=== PATIENT | female | born 1990 | race Caucasian/White ===

== ENCOUNTER 2019-04-11 11:51 | Emergency (ER) | payer OTHER ==
[~2019-04-11] VITALS: Ht 165.1 cm; Wt 83.9 kg
[~2019-04-11 11:51] MED LIST: BIRTH CONTROL
[2019-04-11] MEDS ORDERED: SODIUM CHLORIDE 0.9% 1000ML 1,000 ML IV STA (11:57)
[2019-04-11] MEDS ORDERED: ONDANSETRON HCL INJ 2MG/ML 2ML 2 MG/ML VIAL IV NR (11:57)
[2019-04-11] MEDS ORDERED: KETOROLAC TROMETHAMINE 30 MG/ML VIAL IV NR (12:17)
[2019-04-11 12:19] LABS: BASOPHILS % 0.6 % (0.0-1.0); EOSINOPHILS # (AUTO) 0.2 (0.0-0.4); EOSINOPHILS % 3.2 % (0.0-6.0); HEMATOCRIT 41.2 % (34.2-44.1); HEMOGLOBIN 14.2 g/dL (12.0-16.0); LYMPHOCYTES # (AUTO) 2.3 (1.0-3.2); MEAN CORPUSCULAR HEMOGLOBIN 28.1 pg (28-32); MEAN CORPUSCULAR HGB CONC 34.5 g/dL (31-35); MEAN CORPUSCULAR VOLUME 81.4 fL (81-99); MONOCYTES # (AUTO) 0.5 (0.2-0.8); NEUTROPHILS # (AUTO) 3.5 (2.1-6.9); PLATELET COUNT 379 x10e3/uL (140-360); RED BLOOD COUNT 5.06 x10e6/uL (3.6-5.1); RED CELL DISTRIBUTION WIDTH 12.7 % (11.7-14.4)
[2019-04-11] MEDS ORDERED: MORPHINE SULFATE INJ 4 MG/ML INJ 1ML IV NR (12:30)
[2019-04-11 12:38] LABS: ALANINE AMINOTRANSFERASE 16 IU/L (0-55); ALBUMIN 3.7 g/dL (3.5-5.0); ALBUMIN/GLOBULIN RATIO 0.9 (0.8-2.0); ALKALINE PHOSPHATASE 77 IU/L (40-150); ANION GAP 13.8 mmol/L (8-16); BLOOD UREA NITROGEN 10 mg/dL (7-26); BUN/CREATININE RATIO 14 (6-25); CALCIUM 9.4 mg/dL (8.4-10.2); CARBON DIOXIDE 22 mmol/L (22-29); CHLORIDE 106 mmol/L (98-107); CREATININE, SERUM 0.73 mg/dL (0.57-1.11); EST GLOMERULAR FILTRATION RATE > 60 ML/MIN (60-); GLUCOSE 93 mg/dL (74-118); POTASSIUM 3.8 mmol/L (3.5-5.1); SODIUM 138 mmol/L (136-145)
[2019-04-11 13:21] LABS: BILIRUBIN,URINE NEGATIVE (NEGATIVE); CLARITY,URINE SL CLOUDY (CLEAR); COLOR,URINE YELLOW (YELLOW); KETONES,URINE NEGATIVE (NEGATIVE); LEUKOCYTE ESTERASE ,URINE NEGATIVE (NEGATIVE); NITRITE,URINE POSITIVE (NEGATIVE); PROTEIN,URINE DIPSTICK NEGATIVE (NEGATIVE); URINE UROBILINOGEN 0.2 mg/dL (0.2 - 1)
[2019-04-11 13:22] LABS: PREGNANCY TEST, URINE NEGATIVE (NEGATIVE)
[2019-04-11 13:37] LABS: BACTERIA,URINE MANY /HPF; EPITHELIAL CELLS,URINE RARE /LPF
[2019-04-11] MEDS ORDERED: CEFTRIAXONE SOD 1 GM VIAL IV ONE (14:15)
[2019-04-11] MEDS ORDERED: CEFTRIAXONE SOD 1 GM/NS 50 ML 50 ML IV ONE (14:30)
--- NOTE | 2019-04-11 14:37 | Diagnostic Imaging Report ---
EXAM: CT Abdomen and Pelvis WITHOUT contrast INDICATION: ^STONE PROTOCOL ^[id number] ^1335 ^Y COMPARISON: None. TECHNIQUE: Abdomen and pelvis were scanned utilizing a multidetector helical scanner from the lung base to the pubic symphysis without administration of IV contrast. Absence of intravenous contrast decreases sensitivity for detection of focal lesions and vascular pathology. Coronal and sagittal reformations were obtained. Routine protocol was performed. IV CONTRAST: None. ORAL CONTRAST: Water RADIATION DOSE: Total DLP: 517.2 mGy*cm Estimated effective dose: (DLP x 0.015 x size factor) mSv COMPLICATIONS: None FINDINGS: LINES and TUBES: None. LOWER THORAX: Unremarkable HEPATOBILIARY: No focal hepatic lesions. No biliary ductal dilation. GALLBLADDER: No radio-opaque stones or sludge. No wall thickening. SPLEEN: No splenomegaly. PANCREAS: No focal masses or ductal dilatation. ADRENALS: No adrenal nodules KIDNEYS/URETERS: No hydronephrosis. No cystic or solid mass lesions. Two small (2-3 mm) nonobstructing calcified stone is seen in the upper pole of the right kidney on series 3, images 56 and 54. A 1 mm calcified stone in the upper pole of the left kidney is seen on series 3, image 54. No calcified stones in the ureters. GI TRACT: No abnormal distention, wall thickening, or evidence of bowel obstruction. The appendix is normal in caliber but filled with linear hyperdense material. No surrounding fat stranding or fluid collections to suggest acute inflammation. PELVIC ORGANS/BLADDER: Unremarkable. Specifically, no calcified stones in the urinary bladder. LYMPH NODES: No lymphadenopathy. VESSELS: Unremarkable. PERITONEUM / RETROPERITONEUM: No free air or fluid. BONES: Unremarkable. SOFT TISSUES: Unremarkable. IMPRESSION: Nonobstructing bilateral nephrolithiasis. Signed by: Dr. Suzette May M.D. on 04/11/2019 2:33 PM
[2019-04-11 14:56] VITALS: BP 107/72
== END 2019-04-11 15:00 | disposition home or self-care (01) ==
LOC: ER 11:52
DX: R10.9 Unspecified abdominal pain (principal); M54.5 Low back pain; N39.0 Urinary tract infection, site not specified
CPT/HCPCS: 36415; 74176; 80053; 81001; 81025; 85025; 99284; J0696; J1885; J2270; J2405; J7030

== ENCOUNTER 2020-07-21 17:25 | Emergency (ER) | payer OTHER ==
[~2020-07-21] VITALS: Ht 165.1 cm; Wt 83.9 kg
--- OUTSIDE RECORDS SUMMARY | 2020-07-21 19:03 | XMS REPORT | Continuity of Care Document ---
Author Author Panono MAYLIN Reyes Organization [employer] [facility] Address Unknown Phone Unavailable Care Team Providers Care Lodge Attendant Name Role Phone [employer] [facility] Unavailable Un available Problems Problem Status Onset Date Classification Date Reported Comments Source Nicotine vapor product user Ac tive Problem [facility] Overweight Active Diagnosis 07/01/2019 [facility] Heartburn Active Diagnosis 07/01/2019 [facility] Seasonal allergies Active Problem 06/06/2020 [facility] Smoker Active Diagnosis 07/19/2019 [facility] Cough Active Diagnosis 07/01/2019 [facility] BMI 33.0-33.9,adult Active Diagnosis 07/01/2019 [facility] Elevated liver enzymes Active Problem 06/06/2020 [facility] Acne vulgaris Active Diagnosis 07/19/2019 [facility] Dizziness Active Diagnosis 07/19/2019 [facility] Allergic rhinitis Active Problem 02/20/2016 [facility] Anemia Active Problem 02/20/2016 [facility] Tobacco abuse Active Problem 02/20/2016 [facility] Obesity Active Problem 02/20/2016 [facility] Elevated LFTs Active Diagnosis 07/18/2015 [facility] Palpitations Active Diagnosis 07/18/2015 [facility] Elevated bilirubin Active Diagnosis 07/18/2015 [facility] Routine general medical examination at a health care facility Active Diag nosis 07/18/2015 [facility] Obesity Active Problem 06/26/2016 [facility] Epigastric pain Active Diagnosis 02/14/2016 [facility] BMI 32.0-32.9,adult Active Diagnosis 02/14/2016 [facility] Abdominal pain Active Diagnosis 02/20/2016 [facility] Low back pain Active Diagnosis 04/17/2016 [facility] Tobacco use disorder Active Problem 06/26/2016 [facility] Urinary tract infection Active Diagnosis 04/17/2016 [facility] Allergic rhinitis Active Problem 06/26/2016 [facility] Anemia Active Problem 06/26/2016 [facility] Shortness of breath Active Diagnosis 06/26/2016 [facility] Methamphetamine use Active Diagnosis 06/26/2016 [facility] Palpitations Active Diagnosis 06/26/2016 [facility] History of kidney stones Active Diagnosis 02/19/2020 [facility] BMI 34.0-34.9,adult Active Problem 06/06/2020 [facility] Obesity (BMI 30.0-34.9) Active Problem 06/06/2020 [facility] UTI symptoms Active Diagnosis 02/19/2020 [facility] Lower back pain Active Diagnosis 02/19/2020 [facility] Medications Medication Details Route Status Patient Instructions Ordering Provider Order Date Source Tramadol HCl 1 tablet as needed Orally Active 50 MG Orally twice a day (bid) [place] 02/15/2020 [facility] Cipro 1 tablet Orally Active 250 MG Orally every 12 hrs [place] 02/15/2020 [facility] Minocycline HCl ER as directed Orally Active 135 MG Orally [place] 07/06/2019 [facility] Zithromax Z-Suman 2 tablets on the first day, then 1 tablet daily for 4 days Orally Active 250 MG Orally Once a day [place] 06/26/2019 [facility] Omeprazole 1 capsule Orally Active 40 mg Orally Once a day [place] 06/26/2019 [facility] ProAir HFA 2 puffs as needed Inhalation Active 108 (90 Base) MCG/ACT Inhalation every 6 hrs [place] 06/26/2019 [facility] Phenergan 1/2 to 1 tablet as n eeded Orally Active 25 MG Orally every 6 hrs [place] 06/19/2016 [facility] Ranitidine HCl 1 tablet Orally Active 300 MG Orally Once a da y [place] 06/19/2016 [facility] Bactrim DS 1 tablet Orally Active 800-160 MG Orally twice a day [place] 04/15/2016 [facility] Cipro 1 tablet Orally Active 500 mg Orally Twice a d ay [place] 02/09/2016 [facility] Omeprazole 1 capsule Orally Active 20 mg Orally Once a day [place] 02/09/2016 [facility] Vicodin 1 tablet as needed Orally Active 5-300 MG Orally every 6 hrs [place] 08/16/2015 [facility] Meclizine HCl 1 tablet as need ed Orally Active 25 MG Orally once to twice daily as needed for dizziness [place] 07/03/2015 [facility] Flonase 1 spray in each nostril Nasally Active 50 MCG/ACT Nasally as needed (prn) [place] 02/20/2015 [facility] ProAir HFA 2 puffs as needed Inhalation Active 108 (90 Base) MCG/ACT Inhalation every 4 hrs [place] 02/20/2015 [facility] Levora 0.15/30 (28) 1 tablet Orally Active 30-0.15 MCG-MG Orally Once a day [facility] Microgestin FE 12/13 (Prior Aut h: Rx Ref#:[id number]) Oral Active 1-20 MG-MCG Oral [facility] Adapalene (Prior Auth: Rx Ref# :[id number]) External Active 0.3 % External [facility] Levora 0.15/30 (28) 1 tablet Orally Active 30-0.15 MCG-MG Orally [facility] ProAir HFA 2 puffs as needed Inhalation Active 108 (90 Base) MCG/ACT Inhalation every 6 hrs [facility] Allergies, Adverse Reactions, Alerts Substance Category Reaction Severity Reaction type Status Date Reported Comments Source N.K.D.A. Adverse Reaction Info Not Available Adverse Reaction 02/15/2020 [facility] Immunizations No Data Provided for This Section Results No Data Provided for This Section Pathology Reports No Data Provided for This Section Diagnostic Reports No Data Provided for This Section Consultation Notes No Data Provided for This Section Discharge Summaries No Data Provided for This Section History and Physicals No Data Provided for This Section Vital Signs Vital Sign Value Date Comments Source Weight 202 02/15/2020 [facility] Height 64 0 02/15/2020 [facility] Temperature Oral (F) 98.3 F 02/15/2020 [facility] Heart Rate 83 02/15/2020 [facility] Diastolic (mm Hg) 74 02/15/2020 [facility] Systolic (mm Hg) 108 02/15/2020 [facility] Weight 198 07/06/2019 [facility] Height 64 0 07/06/2019 [facility] Heart Rate 82 07/06/2019 [facility] Diastolic (mm Hg) 70 07/06/2019 [facility] Systolic (mm Hg) 118 07/06/2019 [facility] Weight 197 06/26/2019 [facility] Height 64 0 06/26/2019 [facility] Heart Rate 66 06/26/2019 [facility] Diastolic (mm Hg) 70 06/26/2019 [facility] Systolic (mm Hg) 122 06/26/2019 [facility] Weight 188 06/24/2016 [facility] Height 64 0 06/24/2016 [facility] Heart Rate 95 06/24/2016 [facility] Diastolic (mm Hg) 78 06/24/2016 [facility] Systolic (mm Hg) 118 06/24/2016 [facility] Weight 194 04/15/2016 [facility] Height 64 0 04/15/2016 [facility] Temperature Oral (F) 98.2 F 04/15/2016 [facility] Heart Rate 80 04/15/2016 [facility] Diastolic (mm Hg) 70 04/15/2016 [facility] Systolic (mm Hg) 120 04/15/2016 [facility] Weight 195 02/15/2016 [facility] Height 64 0 02/15/2016 [facility] Heart Rate 95 02/15/2016 [facility] Diastolic (mm Hg) 76 02/15/2016 [facility] Systolic (mm Hg) 122 02/15/2016 [facility] Weight 190 02/09/2016 [facility] Height 64 0 02/09/2016 [facility] Heart Rate 98 02/09/2016 [facility] Diastolic (mm Hg) 72 02/09/2016 [facility] Systolic (mm Hg) 120 02/09/2016 [facility] Weight 193 07/17/2015 [facility] Height 64 0 07/17/2015 [facility] Heart Rate 79 07/17/2015 [facility] Diastolic (mm Hg) 64 07/17/2015 [facility] Systolic (mm Hg) 120 07/17/2015 [facility] Encounters Location Location Details Encounter Type Encounter Number Reason For Visit Attending Provider ADM Date DC Date Status Source [facility]/ health assessment form for work [id number] 07/17/2015 07/17/2015 [facility] physical/ health assessment form for work [id number] 07/17/2015 07/17/2015 [facility] physical/ health assessment form for work [id number] 07/17/2015 07/17/2015 [facility] physical/ health assessment form for work [id number] 07/17/2015 07/17/2015 [facility] physical/ health assessment form for work [id number] 07/17/2015 07/17/2015 [facility] physical/ health assessment form for work [id number] 07/17/2015 07/17/2015 [facility] physical/ health assessment form for work [id number] 07/17/2015 07/17/2015 [facility] physical/ health assessment form for work [id number] 07/17/2015 07/17/2015 [facility] Cancel Appointment Request [id number] 07/19/2015 07/19/2015 [facility] Cancel Appointment Request [id number] 07/19/2015 07/19/2015 [facility] Cancel Appointment Request [id number] 07/19/2015 07/19/2015 [facility] Cancel Appointment Request [id number] 07/19/2015 07/19/2015 [facility] Cancel Appointment Request [id number] 07/19/2015 07/19/2015 [facility] Cancel Appointment Request [id number] 07/19/2015 07/19/2015 [facility] Cancel Appointment Request [id number] 07/19/2015 07/19/2015 [facility] Cancel Appointment Request [id number] 07/19/2015 07/19/2015 [facility] VOMITING/STOMACH PAIN [id number] 08/16/2015 08/16/2015 [facility] VOMITING/STOMACH PAIN [id number] 08/16/2015 08/16/2015 [facility] VOMITING/STOMACH PAIN [id number] 08/16/2015 08/16/2015 [facility] VOMITING/STOMACH PAIN [id number] 08/16/2015 08/16/2015 [facility] VOMITING/STOMACH PAIN [id number] 08/16/2015 08/16/2015 [facility] VOMITING/STOMACH PAIN [id number] 08/16/2015 08/16/2015 [facility] VOMITING/STOMACH PAIN [id number] 08/16/2015 08/16/2015 [facility] Returned call [id number] 08/16/2015 08/16/2015 [facility] Returned call [id number] 08/16/2015 08/16/2015 [facility] Returned call [id number] 08/16/2015 08/16/2015 [facility] Returned call [id number] 08/16/2015 08/16/2015 [facility] Returned call [id number] 08/16/2015 08/16/2015 [facility] Returned call [id number] 08/16/2015 08/16/2015 [facility] Returned call [id number] 08/16/2015 08/16/2015 [facility] Test results [id number] 09/19/2015 09/19/2015 [facility] Test results [id number] 09/19/2015 09/19/2015 [facility] Test results [id number] 09/19/2015 09/19/2015 [facility] Test results [id number] 09/19/2015 09/19/2015 [facility] Test results [id number] 09/19/2015 09/19/2015 [facility] Test results [id number] 09/19/2015 09/19/2015 [facility] Test results [id number] 09/19/2015 09/19/2015 [facility] Needs call back from Medical Staff [id number] 01/02/2016 01/02/2016 [facility] Needs call back from Medical Staff [id number] 01/02/2016 01/02/2016 [facility] Needs call back from Medical Staff [id number] 01/02/2016 01/02/2016 [facility] Needs call back from Medical Staff [id number] 01/02/2016 01/02/2016 [facility] Needs call back from Medical Staff [id number] 01/02/2016 01/02/2016 [facility] stomach pain [id number] 02/09/2016 02/09/2016 [facility] stomach pain [id number] 02/09/2016 02/09/2016 [facility] stomach pain [id number] 02/09/2016 02/09/2016 [facility] stomach pain [id number] 02/09/2016 02/09/2016 [facility] Stomach pains [id number] 02/15/2016 02/15/2016 [facility] Stomach pains [id number] 02/15/2016 02/15/2016 [facility] Stomach pains [id number] 02/15/2016 02/15/2016 [facility] sharp pain on right side of back [id number] 04/15/2016 04/15/2016 [facility] sharp pain on right side of back [id number] 04/15/2016 04/15/2016 [facility] sob, heart palpitations last few days [id number] 06/24/2016 06/24/2016 [facility] Procedures No Data Provided for This Section Assessment and Plan No Data Provided for This Section Plan of Care No Data Provided for This Section Social History Social History Date Source Social History ElementQualifiersDate Rep orted Occupation: employed. [employer] department Jun 24, 2016 children . 1 Jun 24, 2016 Ethnicity . Status , Is welsh your kelvin dorene language? Yes Jun 24, 2016 Tobacco Use: . Are you a: current smoker, How many p acks per day? 1-2 CIG A MONTH, How many years have you smoked? 2-5 Jun 24, 2016 Flu Vaccine: . No, Advised Jun 24, 2016 Use of recreational / street drugs? . Answer: Yes, What drugs do you use? C ocaine, Frequency: once Jun 24, 2016 Do you have pets? . Status: Yes, Type: dog(s) Jun 24, 2016 Where or with whom do you live ? . alone Jun 24, 2016 Marital Status: . Single Jun 24, 2016 Caffeine intake? . Status: No Jun 24, 2016 Do you exercise? . Answer: No Jun 24, 2016 Depression Screening: . negative Jun 24, 2016 Do you drink alcohol? . Status: Yes, Type: Wine, Liquor, How often? Socially Jun 24, 2016 06/24/2016 [facility] Family History Value Date S ource QualifierDescriptionCommentDate Reported Maternal Grandmother Comment not available Jun 24, 2016 Paternal Grandmother Comment not available Jun 24, 2016 Siblings Comment not available Jun 24, 2016 Maternal Grandfather Comment not available Jun 24, 2016 Children alive healthy Jun 24, 2016 Father alive asthma Jun 24, 2016 Paternal Grandfather Comment not available Jun 24, 2016 Mother alive Comment not available Jun 24, 2016 Other: Comment not available Jun 24, 2016 06/26/2016 [facility] QualifierDescriptionCommentDate Reported Maternal Grandmother Comment not available April 15, 2016 Paternal Grandmother Comment not available April 15, 2016 Siblings Comment not available April 15, 2016 Maternal Grandfather Comment not available April 15, 2016 Children alive healthy April 15, 2016 Father alive asthma April 15, 2016 Paternal Grandfather Comment not available April 15, 2016 Mother alive Comment not available April 15, 2016 Other: Comment not available April 15, 2016 04/17/2016 [facility] QualifierDescriptionCommentDate Reported Maternal Grandmother Comment not available February 15, 2016 Paternal Grandmother Comment not available February 15, 2016 Siblings Comment not available February 15, 2016 Maternal Grandfather Comment not available February 15, 2016 Children alive healthy February 15, 2016 Father alive asthma February 15, 2016 Paternal Grandfather Comment not available February 15, 2016 Mother alive Comment not available February 15, 2016 Other: Comment not available February 15, 2016 02/20/2016 [facility] QualifierDescriptionCommentDate Reported Maternal Grandmother Comment not available February 09, 2016 Paternal Grandmother Comment not available February 09, 2016 Siblings Comment not available February 09, 2016 Maternal Grandfather Comment not available February 09, 2016 Children alive healthy February 09, 2016 Father alive asthma February 09, 2016 Paternal Grandfather Comment not available February 09, 2016 Mother alive Comment not available February 09, 2016 Other: Comment not available February 09, 2016 02/14/2016 [facility] Advance Directives No Data Provided for This Section Functional Status No Data Provided for This Section
--- OUTSIDE RECORDS SUMMARY | 2020-07-21 19:04 | XMS REPORT | Continuity of Care Document ---
Author Author [facility] Organization [facility] Address [address] [place] [address] Phone Unavailable Care Team Providers Care Hot Wound [place] Production Supervisor Name Role Phone YAN SAUCEDO DO PCP Beth MCCOLLUM Attphybeth Unavailable Payers Payer Name Policy Type Policy Number Effective Date Expiration Date Beth ross [facility] [id number] 2011 00:00:00 [facility] [employer] Pos [id number] [facility] Problems Condition Name Condition Details Condition Category Status Onset Date Resolution Date Last Treatment Date Treating Clinician Comments Source Nicotine vapor product user Ni cotine vapor product user Active Problem 07/19/2019 [facility] Problem Active 2019-07-19 02:02:05 Ilene Piper Overweight Over weight Active Diagnosis 07/01/2019 [facility] Diagnosis Active 2019-07-01 02:01:28 Annabelle Piper Heartburn Hear tburn Active Diagnosis 07/01/2019 [facility] Diagnosis Active 2019-07-01 02:01:28 Annabelle Piper Seasonal allergies Seas onal allergies Active Problem 06/06/2020 [facility] Problem Active 2020-06-06 02:02:23 Annabelle Piper Smoker Smok er Active Diagnosis 07/19/2019 [facility] Diagnosis Active 2019-07-19 02:02:05 Annabelle Piper Cough Coug h Active Diagnosis 07/01/2019 [facility] Diagnosis Active 2019-07-01 02:01:28 Annabelle Munozann BMI 33.0-33.9,adult BMI 33.0-33.9,adult Active Diagnosis 07/01/2019 [facility] Diagnosis Active 2019-07-01 02:01:28 Annabelle Piper Elevated liver enzymes Elev ated liver enzymes Active Problem 06/06/2020 [facility] Problem Active 2020-06-06 02:02:23 Annabelle Piper Acne vulgaris Acne vulgaris Active Diagnosis 07/19/2019 [facility] Diagnosis Active 2019-07-19 02:02:05 Annabelle Munozann Dizziness Dizz iness Active Diagnosis 07/19/2019 [facility] Diagnosis Active 2019-07-19 02:02:05 Annabelle Munozann Allergic rhinitis Deo rgic rhinitis Active Problem 02/20/2016 [facility] Problem Active 2016-02-20 02:13:26 Annabelle [facility] Anemia Anem ia Active Problem 02/20/2016 [facility] Problem Active 2016-02-20 02:13:26 [facility] Tobacco abuse Toba mortgage accounting clerk abuse Active Problem 02/20/2016 [facility] Problem Active 2 02:13:26 Annabelle Munozann Obesity Obes ity Active Problem 02/20/2016 [facility] Problem Active 2016-02-20 02:13:26 Annabelle Munozann Elevated LFTs Elev ated LFTs Active Diagnosis 07/18/2015 [facility] Diagnosis Active 2015-07-18 02:21:23 Annabelle Piper Palpitations Palp itations Active Diagnosis 07/18/2015 [facility] Diagnosis Active 2015-07-18 02:21:23 Annabelle Munozann Elevated bilirubin Elev ated bilirubin Active Diagnosis 07/18/2015 [facility] Diagnosis Active 2015-07-18 02:21:23 Annabelle Piper Routine general medical examination at a health care acility Routine general medical examination at a health care facility Active Diagnosis 07/18/2015 [facility] Diagnosis Active 2015-07-18 02:21:23 Annabelle [facility] Obesity Obes ity Active Problem 06/26/2016 [facility] Problem Active 2016-06-26 02:24:38 Annabelle Piper Epigastric pain Epig astric pain Active Diagnosis 02/14/2016 [facility] Diagnosis Active 2016-02-14 02:26:44 Annabelle Piper BMI 32.0-32.9,adult BMI 32.0-32.9,adult Active Diagnosis 02/14/2016 [facility] Diagnosis Active 2016-02-14 02:26:44 Annabelle Piper Abdominal pain Abdo jessie pain Active Diagnosis 02/20/2016 [facility] Diagnosis Active 2016-02-20 02:13:26 Annabelle Piper Low back pain Low back pain Active Diagnosis 04/17/2016 [facility] Diagnosis Active 2016-04-17 02:10:31 Annabelle Munozann Tobacco use disorder Toba mortgage accounting clerk use disorder Active Problem 06/26/2016 [facility] Problem Active 2016-06-26 02:24:38 Annabelle Munozann Urinary tract infection Urin desiree tract infection Active Diagnosis 04/17/2016 [facility] Diagnosis Active 2016-04-17 02:10:31 Annabelle [facility] Allergic rhinitis Deo rgic rhinitis Active Problem 06/26/2016 [facility] Problem Active 2016-06-26 02:24:38 Annabelle Munozann Anemia Anem ia Active Problem 06/26/2016 [facility] Problem Active 2016-06-26 02:24:38 Annabelle Piper Shortness of breath Shor tness of breath Active Diagnosis 06/26/2016 [facility] Diagnosis Active 2016-06-26 02:24:38 Annabelle Munozann Methamphetamine use Meth amphetamine use Active Diagnosis 06/26/2016 [facility] Diagnosis Active 2016-06-26 02:24:38 Annabelle Piper Palpitations Palp itations Active Diagnosis 06/26/2016 [facility] Diagnosis Active 2016-06-26 02:24:38 Annabelle Munozann History of kidney stones Hist ory of kidney stones Active Diagnosis 02/19/2020 [facility] Diagnosis Active 2020-02-19 02:01:16 [facility] BMI 34.0-34.9,adult BMI 34.0-34.9,adult Active Problem 06/06/2020 [facility] Problem Active 2020-06-06 02:02:23 Annabelle Piper Obesity (BMI 30.0-34.9) Obes ity (BMI 30.0-34.9) Active Problem 06/06/2020 [facility] Problem Active 2020-06-06 02:02:23 Annabelle Piper UTI symptoms UTI symptoms Active Diagnosis 02/19/2020 [facility] Diagnosis Active 2020-02-19 02:01:16 Annabelle Piper Lower back pain Lowe r back pain Active Diagnosis 02/19/2020 [facility] Diagnosis Active 2020-02-19 02:01:16 [facility] Allergies, Adverse Reactions, Alerts Allergy Name Allergy Type Status Severity Reaction(s) Onset Date Inacti ve Date Treating Clinician Comments Source CadenA. NSreeA. Active Info Not Available 2020-02-15 00:00:00 [facility] [place] epinephrine DA Active U 2015-08-05 00:00:00 [facility] Family History Family Member Diagnosis Comments Start Date Stop Date Source Unknown Family Member Family History 2016-02-14 02:26:44 2 02:26:44 Annabelle Piper Social History Social Habit Start Date Stop Date Quantity Comments Source Occupation: 2016-06-24 00:00:00 2016-06-24 00:00:00 [facility] Medications Ordered Medication Name Filled Medication Name Start Date Stop Da te Current Medication? Ordering Clinician Indication Dosage Frequency Signature (SIG) Comments Components Source Microgestin FE 12/132020-02-19 02:01:16 Yes Aaron spears (Prior Auth: Rx Ref#:[id number]) [facility] Adapalene 2020-02-19 02:01:16 Yes Aaron Turcios (Prior Auth: Rx Ref#:[id number]) [facility] ProAir HFA 2020-02-19 02:01:16 Yes Aaron Turcios 2 puffs as needed [facility] Tramadol HCl 2020-02-15 00:00:00 Yes Aaron Turcios 1 tablet as needed [facility] Cipro 2020-02-15 00:00:00 Yes Aaron Turcios 1 tab let [facility] Levora 0. () 2019-07-19 02:02:05 Yes Aaron Turcios 1 tablet [facility] Minocycline HCl ER 2019-07-06 00:00:00 Yes Aaron Turcios as directed [facility] Zithromax Z-Suman 2019-06-26 00:00:00 Yes Aaron Turcios 2 tablets on the first day, then 1 tablet daily for 4 days [facility] Omeprazole 2019-06-26 00:00:00 Yes Aaron Turcios 1 capsule [facility] ProAir HFA 2019-06-26 00:00:00 Yes Aaron Turcios 2 puffs as needed [facility] Levora 0.30 (28) 2016-06-26 02:24:38 Yes Lakia Sergio 1 tablet [facility] [place] Phenergan 2016-06-19 00:00:00 Yes Lakia Sergio 1/2 to 1 tablet as needed [facility] [place] Ranitidine HCl 2016-06-19 00:00:00 Yes Lakia Stanford 1 tablet [facility] [place] Bactrim DS 2016-04-15 00:00:00 Yes Ivone Lennox 1 tablet [facility] Cipro 2016-02-09 00:00:00 Yes Lakia Sergio 1 table t [facility] Omeprazole 2016-02-09 00:00:00 Yes Ivone Lennox 1 capsule [facility] [place] Vicodin 2015-08-16 00:00:00 Yes Lakia Stanford 1 tab let as needed [facility] Meclizine HCl 2015-07-03 00:00:00 Yes Lakia Sergio 1 tablet as needed [facility] Flonase 2015-02-20 00:00:00 Yes Lakia Sergio 1 spray in each nostril [facility] [place] ProAir HFA 2015-02-20 00:00:00 Yes Larisa Curry 2 puffs as needed [facility] Control Control Yes [facility] Vital Signs Vital Name Observation Time Observation Value Comments Source Weight 2020-02-15 13:15:00 [facility] [place] Height 2020-02-15 13:15:00 [facility] Temperature Oral (F) 2020-02-15 13:15:00 98.3 F [facility] Heart Rate 2020-02-15 13:15:00 [facility] Diastolic (mm Hg) 2020-02-15 13:15:00 [facility] [place] Systolic (mm Hg) 2020-02-15 13:15:00 [facility] Weight 2019-07-06 21:15:00 [facility] Height 2019-07-06 21:15:00 [facility] Heart Rate 2019-07-06 21:15:00 [facility] [place] Diastolic (mm Hg) 2019-07-06 21:15:00 [facility] [place] Systolic (mm Hg) 2019-07-06 21:15:00 [facility] [place] Weight 2019-06-26 18:30:00 [facility] Height 2019-06-26 18:30:00 [facility] Heart Rate 2019-06-26 18:30:00 [facility] Diastolic (mm Hg) 2019-06-26 18:30:00 [facility] Systolic (mm Hg) 2019-06-26 18:30:00 [facility] [place] Weight 2016-06-24 19:15:00 [facility] [place] Height 2016-06-24 19:15:00 [facility] [place] Heart Rate 2016-06-24 19:15:00 [facility] Diastolic (mm Hg) 2016-06-24 19:15:00 [facility] Systolic (mm Hg) 2016-06-24 19:15:00 [facility] [place] Weight 2016-04-15 19:45:00 [facility] [place] Height 2016-04-15 19:45:00 [facility] [place] Temperature Oral (F) 2016-04-15 19:45:00 98.2 F [facility] [place] Heart Rate 2016-04-15 19:45:00 [facility] [place] Diastolic (mm Hg) 2016-04-15 19:45:00 [facility] [place] Systolic (mm Hg) 2016-04-15 19:45:00 [facility] Weight 2016-02-15 19:45:00 [facility] [place] Height 2016-02-15 19:45:00 [facility] [place] Heart Rate 2016-02-15 19:45:00 [facility] [place] Diastolic (mm Hg) 2016-02-15 19:45:00 [facility] Systolic (mm Hg) 2016-02-15 19:45:00 Miguel rial [place] Weight 2016-02-09 16:15:00 [facility] Height 2016-02-09 16:15:00 [facility] [place] Heart Rate 2016-02-09 16:15:00 [facility] Diastolic (mm Hg) 2016-02-09 16:15:00 [facility] [place] Systolic (mm Hg) 2016-02-09 16:15:00 Miguel rial [place] Weight 2015-07-17 14:00:00 [facility] Height 2015-07-17 14:00:00 [facility] [place] Heart Rate 2015-07-17 14:00:00 [facility] [place] Diastolic (mm Hg) 2015-07-17 14:00:00 Mem orisamantha [place] Systolic (mm Hg) 2015-07-17 14:00:00 Miguel riamanny [place] Procedures Procedure Date / Time Performed Performing Clinician Sourazam e CT of abdomen and pelvis without contrast 2019-04-11 00:00:00 KIZZY CHARLES [facility] Encounters Start Date/Time End Date/Time Encounter Type Admission Type [facility] Care Department Encounter ID Source 2020-06-03 06:15:00 2020-06-03 06:15:00 Outpatient [facility] [id number] [employer]Works 2020-02-15 08:15:00 2020-02-15 08:15:00 Outpatient [facility] [id number] [employer] 2019-07-06 16:15:00 2019-07-06 16:15:00 Outpatient [facility] [id number] [employer]ClinicalWorks 2019-06-26 13:30:00 2019-06-26 13:30:00 Outpatient [facility] [id number] [employer] 2019-04-11 11:52:00 2019-04-11 15:00:00 Departed Emergency Room 1 ENE MCCOLLUM [facility] [id number] [facility] 2016-06-24 14:15:00 2016-06-24 14:15:00 Outpatient [facility] [id number] eClinicalWorks 2016-04-15 14:45:00 2016-04-15 14:45:00 Outpatient [facility] [id number] [employer]Works 2016-02-15 14:45:00 2016-02-15 14:45:00 Outpatient [facility] [id number] e[facility]Works 2016-02-09 11:15:00 2016-02-09 11:15:00 Outpatient [facility] [id number] [employer]Works 2016-01-02 13:20:00 2016-01-02 13:20:00 [facility] [id number] [facility] 2015-09-19 11:49:00 2015-09-19 11:49:00 Out[facility] [id number] [facility] 2015-08-16 15:48:00 2015-08-16 15:48:00 Outpatient [facility] [id number] [facility] 2015-07-17 09:00:00 2015-07-17 09:00:00 Outpatient [facility] [id number] [facility] Results Test Description Test Time Test Comments Results Result Comments Source URINALYSIS COMPLETE 2019-08-29 01:36:00 Test Item UA COLOR (test code = COLU) YELLOW YELLOW UA APPEARANCE (test code = APPU) CLEAR CLEAR UA GLUCOSE DIPSTICK (test code = DGLUU) NEGATIVE mg/dL NEGATIVE UA BILIRUBIN DIPSTICK (test code = BILU) NEGATIVE mg/dL NEGATIVE UA KETONE DIPSTICK (test code = KETU) >150 (4+) mg/dL NEGATIVE A UA SPECIFIC GRAVITY (test code = SGU) 1.035 1.001-1.035 UA BLOOD DIPSTICK (test code = QUANG) Negative mg/dL NEGATIVE UA PH DIPSTICK (test code = ISAAC) 6.0 5.0-8.0 UA PROTEIN DIPSTICK (test code = PROU) 50 (1+) mg/dL NEGATIVE A UA UROBILINIOGEN DIPSTICK (test code = URO) Normal mg/dL NEGATIVE UA NITRITE DIPSTICK (test code = RUFINO) NEGATIVE NEGATIVE UA LEUKOCYTE ESTERASE W REFLEX (test code = LEUUR) 75 Giovana/uL (1+) Giovana/uL NEGATIVE A UA WBC (test code = WBCU) 0-5 per HPF 0-5 UA RBC (test code = RBCU) 0-2 #/HPF 0-5 UA EPITHELIAL CELLS (test code = EPIU) MOD per HPF FEW UA BACTERIA (test code = BACU) FEW #/HPF NONE A UA MUCUS (test code = MUCU) MANY #/LPF FEW A Urine Source? Clean CatchDRUGS OF ABUSE SCREEN [id number] 01:36:00* Test Item Value Reference Range Interpretation Comments URN COCAINE (test code = COCAURN) NEGATIVE <300 ng/mL URN CANNABINOIDS (test code = CANNABURN) NEGATIVE <50 ng/mL URN AMPHETAMINE (test code = AMPHETURN) POSITIVE <1000 ng/mL A This test provides only a preliminary test result. A morespecific alternate chemical method must be used in order toobtain a confirmed analytical result. Gas chromatography/mass spectrometry (GC/MS) is thepreferred confirmatory method. Other chemical confirmationmethods are available. Clinical consideration and professional judgment should be applied to any drug of abusetest result, particularly when preliminary positive resultsare used.Unconfirmed screening results must not be used fornon-medical purposes (e.g., employment testing, legaltesting). URN BARBITURATE (test code = BARBITURN) NEGATIVE <200 ng/mL URN BENZODIAZEPINE (test code = BENZOURN) NEGATIVE <200 ng/mL URN OPIATES (test code = OPIATURN) NEGATIVE <300 ng/mL URN PHENCYCLIDINE (PCP) (test code = PHENCURN) NEGATIVE <25 ng/ mL URN METHADONE (test code = METHAURN) NEGATIVE <300 ng/mL Urine Source? Clean CatchURINALYSIS [id number] 01:23:00* Test Item Value Reference Range Interpretation Comments UA COLOR (test code = COLU) YELLOW YELLOW UA APPEARANCE (test code = APPU) CLEAR CLEAR UA GLUCOSE DIPSTICK (test code = DGLUU) NEGATIVE mg/dL NEGATIVE UA BILIRUBIN DIPSTICK (test code = BILU) NEGATIVE mg/dL NEGATIVE UA KETONE DIPSTICK (test code = KETU) >150 (4+) mg/dL NEGATIVE A UA SPECIFIC GRAVITY (test code = SGU) 1.035 1.001-1.035 UA BLOOD DIPSTICK (test code = QUANG) Negative mg/dL NEGATIVE UA PH DIPSTICK (test code = ISAAC) 6.0 5.0-8.0 UA PROTEIN DIPSTICK (test code = PROU) 50 (1+) mg/dL NEGATIVE A UA UROBILINIOGEN DIPSTICK (test code = URO) Normal mg/dL NEGATIVE UA NITRITE DIPSTICK (test code = RUFINO) NEGATIVE NEGATIVE UA LEUKOCYTE ESTERASE W REFLEX (test code = LEUUR) 75 Giovana/uL (1+) Giovana/uL NEGATIVE A UA WBC (test code = WBCU) 0-5 per HPF 0-5 UA RBC (test code = RBCU) 0-2 #/HPF 0-5 UA EPITHELIAL CELLS (test code = EPIU) MOD per HPF FEW UA BACTERIA (test code = BACU) FEW #/HPF NONE A UA MUCUS (test code = MUCU) MANY #/LPF FEW A Urine Source? Clean CatchDRUGS OF ABUSE SCREEN [id number] 01:23:00* Test Item Value Reference Range Interpretation Comments URN COCAINE (test code = COCAURN) <300 ng/mL URN CANNABINOIDS (test code = CANNABURN) <50 ng/mL URN AMPHETAMINE (test code = AMPHETURN) <1000 ng/mL URN BARBITURATE (test code = BARBITURN) <200 ng/mL URN BENZODIAZEPINE (test code = BENZOURN) <200 ng/mL URN OPIATES (test code = OPIATURN) <300 ng/mL URN PHENCYCLIDINE (PCP) (test code = PHENCURN) <25 ng/ mL URN METHADONE (test code = METHAURN) <300 ng/mL Urine Source? Clean CatchBASIC METABOLIC [id number] 01:20:00* Test Item Value Reference Range Interpretation Comments SODIUM (test code = NA) 141 mmol/L 136-145 N POTASSIUM (test code = K) 3.6 mmol/L 3.5-5.1 N CHLORIDE (test code = CL) 107.0 mmol/L 98-107 N CARBON DIOXIDE (test code = CO2) 21.0 mmol/L 21-32 N ANION GAP (test code = GAP) 16.6 10-20 N GLUCOSE (test code = GLU) 91 mg/dL 74-106 N BLOOD UREA NITROGEN (test code = BUN) 12 mg/dL 7-18 N GLOMERULAR FILTRATION RATE (test code = GFR) > 60 mL/min >=60 Estimated GFR by using Modified MDRD formula.Chronic kidney disease is defined as either kidney damageor GFR <60 mL/min/1.73 m2 for >3 months. CREATININE (test code = CREAT) 0.70 mg/dL 0.55-1.02 N Note change in reference range due to change in reagent. BUN/CREATININE RATIO (test code = BUN/CREA) 17.1 10-20 N CALCIUM (test code = CA) 8.6 mg/dL 8.5-10.1 N HEPATIC FUNCTION [id number] 01:20:00* Test Item Value Reference Range Interpretation Comments TOTAL PROTEIN (test code = PROT) 7.6 gram/dL 6.4-8.2 N ALBUMIN (test code = ALB) 3.7 g/dL 3.4-5.0 N GLOBULIN (test code = GLOB) 3.9 gram/dL 2.7-4.2 N ALBUMIN/GLOBULIN RATIO (test code = A/G) 0.9 0.75-1.50 N BILIRUBIN TOTAL (test code = BILT) 1.60 mg/dL 0.0-1.0 H BILIRUBIN DIRECT (test code = BILD) 0.31 mg/dL 0.0-0.20 H SGOT/AST (test code = AST) 42 IUnit/L 15-37 H SGPT/ALT (test code = ALT) 50 IUnit/L 12-78 N ALKALINE PHOSPHATASE TOTAL (test code = ALKP) 85 IUnit/L 45-117 N Note change in reference range due to change in reagent. CREATINE KINASE (CK)2019-08-29 01:20:00* Test Item Value Reference Range Interpretation Comments CREATINE KINASE (CK) (test code = CK) 203 IUnit/L 26-208 N [id number] 01:20:00* Test Item Value Reference Range Interpretation Comments LIPASE (test code = LIP) 61 U/L 73.0-393.0 L HCG SERUM [id number] 01:20:00* Test Item Value Reference Range Interpretation Comments HCG SERUM QUAL (test code = HCGQL) NEGATIVE NEGATIVE This HCGQL test is NOT applicable for MALE patients.Check with nurse about probable order error.If Tumor Marker Test needed, nurse should order test "HCGTU"(Test #[id number]) [id number] 01:20:00* Test Item Value Reference Range Interpretation Comments TROPONIN-I (test code = TROPI) <0.015 ng/mL 0-0.045 N [id number] 01:20:00* Test Item Value Reference Range Interpretation Comments ACETAMINOPHEN (test code = ACET) < 10 mcg/mL 10-30 L A RANGE OF 10-30 mcg/mL IS A THERAPEUTIC RANGE. TOXIC CONCENTRATIONS: >150 mcg/mL AT 4 HOURS AFTER INGESTION >= 50 mcg/mL AT 12 HOURS AFTER INGESTION [id number]:20:00* Test Item Value Reference Range Interpretation Comments SALICYLATE (test code = FLASH) < 1.7 mg/dL 2.8-20.0 L [id number] 01:20:00* Test Item Value Reference Range Interpretation Comments ALCOHOL (test code = ALC) < 3 mg/dL 0.0-3.0 N -- INTERPRETIVE DATA NOTE: POSITIVE SCREENING RESULTS SHOULD BE CONSIDERED PRESUMPTIVE.WHEN COLLECTED FOR MEDICAL PURPOSES ONLY. SPECIMEN WILL NOTBE COLLECTED BY CHAIN OF CUSTODY.IF A CONFIRMATION OF POSITIVE RESULTS IS DESIRED, ACONFIRMATION TEST MUST BE REQUESTED BY THE PHYSICIAN AT ANADDITIONAL CHARGE TO THE PATIENT. BASIC METABOLIC [id number] 01:06:00* Test Item Value Reference Range Interpretation Comments SODIUM (test code = NA) 141 mmol/L 136-145 N POTASSIUM (test code = K) 3.6 mmol/L 3.5-5.1 N CHLORIDE (test code = CL) 107.0 mmol/L 98-107 N CARBON DIOXIDE (test code = CO2) mmol/L 21-32 ANION GAP (test code = GAP) 10-20 GLUCOSE (test code = GLU) mg/dL 74-106 BLOOD UREA NITROGEN (test code = BUN) mg/dL 7-18 GLOMERULAR FILTRATION RATE (test code = GFR) mL/min >=60 CREATININE (test code = CREAT) mg/dL 0.55-1.02 BUN/CREATININE RATIO (test code = BUN/CREA) 10-20 CALCIUM (test code = CA) mg/dL 8.5-10.1 HEPATIC FUNCTION [id number] 01:06:00* Test Item Value Reference Range Interpretation Comments TOTAL PROTEIN (test code = PROT) gram/dL 6.4-8.2 ALBUMIN (test code = ALB) g/dL 3.4-5.0 GLOBULIN (test code = GLOB) gram/dL 2.7-4.2 ALBUMIN/GLOBULIN RATIO (test code = A/G) 0.75-1.50 BILIRUBIN TOTAL (test code = BILT) mg/dL 0.0-1.0 BILIRUBIN DIRECT (test code = BILD) mg/dL 0.0-0.20 SGOT/AST (test code = AST) IUnit/L 15-37 SGPT/ALT (test code = ALT) IUnit/L 12-78 ALKALINE PHOSPHATASE TOTAL (test code = ALKP) IUnit/L 45-117 CREATINE KINASE (CK)2019-08-29 01:06:00* Test Item Value Reference Range Interpretation Comments CREATINE KINASE (CK) (test code = CK) IUnit/L 26-208 [id number] 01:06:00* Test Item Value Reference Range Interpretation Comments LIPASE (test code = LIP) U/L 73.0-393.0 HCG SERUM [id number] 01:06:00* Test Item Value Reference Range Interpretation Comments HCG SERUM QUAL (test code = HCGQL) NEGATIVE [id number] 01:06:00* Test Item Value Reference Range Interpretation Comments TROPONIN-I (test code = TROPI) ng/mL 0-0.045 [id number] 01:06:00* Test Item Value Reference Range Interpretation Comments ACETAMINOPHEN (test code = ACET) mcg/mL 10-30 [id number] 01:06:00* Test Item Value Reference Range Interpretation Comments SALICYLATE (test code = FLASH) mg/dL 2.8-20.0 [id number] 01:06:00* Test Item Value Reference Range Interpretation Comments ALCOHOL (test code = ALC) mg/dL 0-3 BASIC METABOLIC [id number] 01:06:00* Test Item Value Reference Range Interpretation Comments SODIUM (test code = NA) 141 mmol/L 136-145 N POTASSIUM (test code = K) 3.6 mmol/L 3.5-5.1 N CHLORIDE (test code = CL) 107.0 mmol/L 98-107 N CARBON DIOXIDE (test code = CO2) mmol/L 21-32 ANION GAP (test code = GAP) 10-20 GLUCOSE (test code = GLU) mg/dL 74-106 BLOOD UREA NITROGEN (test code = BUN) mg/dL 7-18 GLOMERULAR FILTRATION RATE (test code = GFR) mL/min >=60 CREATININE (test code = CREAT) mg/dL 0.55-1.02 BUN/CREATININE RATIO (test code = BUN/CREA) 10-20 CALCIUM (test code = CA) mg/dL 8.5-10.1 HEPATIC FUNCTION [id number] 01:06:00* Test Item Value Reference Range Interpretation Comments TOTAL PROTEIN (test code = PROT) gram/dL 6.4-8.2 ALBUMIN (test code = ALB) g/dL 3.4-5.0 GLOBULIN (test code = GLOB) gram/dL 2.7-4.2 ALBUMIN/GLOBULIN RATIO (test code = A/G) 0.75-1.50 BILIRUBIN TOTAL (test code = BILT) mg/dL 0.0-1.0 BILIRUBIN DIRECT (test code = BILD) mg/dL 0.0-0.20 SGOT/AST (test code = AST) IUnit/L 15-37 SGPT/ALT (test code = ALT) IUnit/L 12-78 ALKALINE PHOSPHATASE TOTAL (test code = ALKP) IUnit/L 45-117 CREATINE KINASE (CK)2019-08-29 01:06:00* Test Item Value Reference Range Interpretation Comments CREATINE KINASE (CK) (test code = CK) IUnit/L 26-208 EORSCS5717-11-08 01:06:00* Test Item Value Reference Range Interpretation Comments LIPASE (test code = LIP) U/L 73.0-393.0 HCG SERUM [id number] 01:06:00* Test Item Value Reference Range Interpretation Comments HCG SERUM QUAL (test code = HCGQL) NEGATIVE NEGATIVE This HCGQL test is NOT applicable for MALE patients.Check with nurse about probable order error.If Tumor Marker Test needed, nurse should order test "HCGTU"(Test #550.60738) [id number]-[id number] 01:06:00* Test Item Value Reference Range Interpretation Comments TROPONIN-I (test code = TROPI) ng/mL 0-0.045 [id number] 01:06:00* Test Item Value Reference Range Interpretation Comments ACETAMINOPHEN (test code = ACET) mcg/mL 10-30 [id number] 01:06:00* Test Item Value Reference Range Interpretation Comments SALICYLATE (test code = FLASH) mg/dL 2.8-20.0 [id number] 01:06:00* Test Item Value Reference Range Interpretation Comments ALCOHOL (test code = ALC) mg/dL 0-3 CBC W/O [id number] 00:53:00* Test Item Value Reference Range Interpretation Comments WHITE BLOOD CELL (test code = WBC) 12.8 K/mm3 4.5-12.5 H RED BLOOD CELL (test code = RBC) 4.66 mill/mm3 3.7-5.2 N HEMOGLOBIN (test code = HGB) 12.9 gram/dL 11.5-15.5 N HEMATOCRIT (test code = HCT) 37.3 % 36.0-46.0 N MEAN CELL VOLUME (test code = MCV) 80.0 fL 80-98 N MEAN CELL HGB (test code = MCH) 27.7 picogram 27.0-33.0 N MEAN CELL HGB CONCETRATION (test code = MCHC) 34.6 gram/dL 33.0-36. 0 N RED CELL DISTRIBUTION WIDTH (test code = RDW) 12.5 % 11.6-16. 2 N PLATELET COUNT (test code = PLT) 377 K/mm3 150-450 N MEAN PLATELET VOLUME (test code = MPV) 10.5 fL 6.7-11.0 N - XR CHEST 1 [id number] 23:53:00 FAX: Dakota Macias MD [place]: B St: REG Name: MAYLIN OSUNA [facility] : [birth year] Age/S: 29/F [address] Unit #: [id number] Loc: [place] [address] Phys: Dakota Macias MD Acct: [id number] Dis Date: Status: REG ER PHONE #: [phone] Exam Date: 08/28/2019 2351 FAX #: [phone] Reason: COUGH EXAMS: CPT CODE: [id number] XR CHEST 1 V 86991 EXAM: - XR CHEST 1 V HISTORY: Cough. FINDINGS: Single AP view of the ch est is provided. Heart size and vascularity are within normal limits. The lungs are clear of focal consolidation. No effusion, pneumothorax, or acute osseous abnormality. IMPRESSION: No ra diographic evidence of acute cardiopulmonary process. at 3673 Repor binu and signed by: Conrad Gomez MD CC: Dakota Macias MD Technologist: GRACY HESS Trnscrd Date/Time/By: 08/28/2019 (4589) : By: Sheila [email or web address] Orig Print D/T: S: 08/28/2019 (0259) SARAH NÚÑEZ [address] ABDOMEN/PELVIS [id number] 14:28:00 [place] [address] Patient Name: MAYLIN CANO MR #: [id number] : 1990 Age/Sex: 28/F Req #: [id number] Adm Physician: Ordered by: KIZZY VELASQUEZ MENSWEAR SALESPERSON Report #: [id number] Location: ER Room/Bed: Procedure: [id number] CT /CT ABDOMEN/PELVIS WO Exam Date: 04/11/19 Exam Time: 1335 REPORT STATUS: Signed EXAM: CT Abdomen and Pelvis WITHOUT contrast INDICATION: STONE PROTOCOL [id number] Y COMPARISON: None. TECHNIQUE: Abdomen and pe lvis were scanned utilizing a multidetector helical scanner from the lung base to the pubic symphysis without administration of IV contrast. Absence of intr avenous contrast decreases sensitivity for detection of focal lesions and vasc ular pathology. Coronal and sagittal reformations were obtained. Routine china col was performed. IV CONTRAST: None. ORAL CONTRAST : Water RADIATION DOSE: Total DLP: 517.2 mGy*cm Est imated effective dose: (DLP x 0.015 x size factor) mSv COMPLICATIO NS: None FINDINGS: LINES and TUBES: None. LOWER THORAX: Unremark able HEPATOBILIARY: No focal hepatic lesions. No biliary ductal dilati on. GALLBLADDER: No radio-opaque stones or sludge. No wall thickening. SPLEEN: No splenomegaly. PANCREAS: No focal masses or ductal dilatation. ADRENALS: No adrenal nodules KIDNEYS/URETERS: No hydronephros is. No cystic or solid mass lesions. Two small (2-3 mm) nonobstructing calci fied stone is seen in the upper pole of the right kidney on series 3, images 5 6 and 54. A 1 mm calcified stone in the upper pole of the left kidney is seen on series 3, image 54. No calcified stones in the ureters. GI TRACT: No a bnormal distention, wall thickening, or evidence of bowel obstruction. T he appendix is normal in caliber but filled with linear hyperdense material. N o surrounding fat stranding or fluid collections to suggest acute inflammation . PELVIC ORGANS/BLADDER: Unremarkable. Specifically, no calcified stones in the urinary bladder. LYMPH NODES: No lymphadenopathy. VESSELS: Unre markable. PERITONEUM / RETROPERITONEUM: No free air or fluid. BONES: U nremarkable. SOFT TISSUES: Unremarkable. IMPRESSION: No nobstructing bilateral nephrolithiasis. Signed by: Dr. Suzette Rosales M.D. on 04/11/2019 2:33 PM Dictated By: SUZETTE SMITH MD E lectronically Signed By: SUZETTE SMITH MD on 04/11/191432 Transcribe d By: LEXUS on 04/11/19 1433 COPY TO: KIZZY VELASQUEZ [employer]WE[employer] SALESPERSON Urine [id number] 13:37:00* Test Item Value Reference Range Interpretation Comments Urine WBC (test code = 5821-4) 6-10 0-5 [facility] [id number] 13:37:00* Test Item Value Reference Range Interpretation Comments Urine RBC (test code = 58190-7) NONE 0-5 [facility] Fvsxiixv0325-45-84 13:37:00* Test Item Value Reference Range Interpretation Comments Urine Bacteria (test code = 56438-1) MANY NONE [facility] Epithelial [id number] 13:37:00 * Test Item Value Reference Range Interpretation Comments Urine Epithelial Cells (test code = 69420-4) RARE NONE [facility] Pqefd4578-55-29 13:22:00* Test Item Value Reference Range Interpretation Comments Urine Color (test code = 5778-6) YELLOW YELLOW [facility] Fopzwqa6025-71-12 13:22:00* Test Item Value Reference Range Interpretation Comments Urine Clarity (test code = 66361-8) SL CLOUDY CLEAR [facility] Specific Njkbxmn1485-93-55 13:22:00 * Test Item Value Reference Range Interpretation Comments Urine Specific [place] (test code = 5811-5) 1.020 1.010-1.02 5 [facility] [id number] 13:22:00* Test Item Value Reference Range Interpretation Comments Urine pH (test code = 71017-3) 6 5-7 [facility] Leukocyte Ekppksrg6312-05-34 13:22:00* Test Item Value Reference Range Interpretation Comments Urine Leukocyte Esterase (test code = 5799-2) NEGATIVE NEGATIVE [facility] Tnzifnf2204-93-78 13:22:00* Test Item Value Reference Range Interpretation Comments Urine Nitrite (test code = 99547-3) POSITIVE NEGATIVE H [facility] Eqgloey6356-12-68 13:22:00* Test Item Value Reference Range Interpretation Comments Urine Protein (test code = 5804-0) NEGATIVE NEGATIVE [facility] Glucose (UA)2019-04-11 13:22:00* Test Item Value Reference Range Interpretation Comments Urine Glucose (UA) (test code = 2349-9) NEGATIVE NEGATIVE [facility] Juduhio5941-48-99 13:22:00* Test Item Value Reference Range Interpretation Comments Urine Ketones (test code = 51249-3) NEGATIVE NEGATIVE [facility] Ysdgwqwxpzzn9801-58-45 13:22:00* Test Item Value Reference Range Interpretation Comments Urine Urobilinogen (test code = 96429-1) 0.2 0.2-1 [facility] Eagajmtpt1880-98-66 13:22:00* Test Item Value Reference Range Interpretation Comments Urine Bilirubin (test code = 1978-6) NEGATIVE NEGATIVE [facility] Dhjul0412-35-74 13:22:00* Test Item Value Reference Range Interpretation Comments Urine Blood (test code = 79399-4) NEGATIVE NEGATIVE [facility] Tqoc9303-68-19 13:22:00* Test Item Value Reference Range Interpretation Comments Urine Test (test code = 2106-3) NEGATIVE NEGATIVE [facility] Lmyzl2061-36-80 12:38:00* Test Item Value Reference Range Interpretation Comments Sodium Level (test code = 2951-2) 138 136-145 [facility] CenterPotassium Xanzy7264-36-98 12:38:00* Test Item Value Reference Range Interpretation Comments Potassium Level (test code = 2823-3) 3.8 3.5-5.1 [facility] CenterChloride Crsrr4451-79-03 12:38:00* Test Item Value Reference Range Interpretation Comments Chloride Level (test code = 2075-0) 106 98-107 [facility] CenterCarbon Dioxide Cuovj5351-95-02 12:38:00* Test Item Value Reference Range Interpretation Comments Carbon Dioxide Level (test code = 2028-9) 22 - [facility] CenterAnion Crl8961-47-23 12:38:00* Test Item Value Reference Range Interpretation Comments Anion Gap (test code = 40606-7) 13.8 8-16 [facility] CenterBlood Urea Twycxksa7045-06-22 12:38:00* Test Item Value Reference Range Interpretation Comments Blood Urea Nitrogen (test code = 3094-0) 10 7-26 [facility] CenterCreatinine2019-05-19 12:38:00* Test Item Value Reference Range Interpretation Comments Creatinine (test code = 2160-0) 0.73 0.57-1.11 [facility] CenterBUN/Creatinine Ncvox2079-71-78 12:38:00* Test Item Value Reference Range Interpretation Comments BUN/Creatinine Ratio (test code = 3097-3) 14 05-18 [facility] CenterEstimat Glomerular Filtration Rate 2019-04-11 12:38:00* Test Item Value Reference Range Interpretation Comments Estimat Glomerular Filtration Rate (test code = 221591604) > 60 >60 Ranges were taken from the National Kidney Disease Education Program and the [facility] [employer] [employer] literature.Reference ranges:60 or greater: Uwckmm41-53 ( for 3 consecutive months): Chronic kidney disease 15 or less: Kidney failureMethodist Charlton Medical CenterGlucose Eexrh5643-87-40 12:38:00* Test Item Value Reference Range Interpretation Comments Glucose Level (test code = BQX1703) 93 74-118 [facility] CenterCalcium Umuon4849-34-09 12:38:00* Test Item Value Reference Range Interpretation Comments Calcium Level (test code = 90476-9) 9.4 8.4-10.2 [facility] CenterTotal Wpyotjwuq6194-49-60 12:38:00* Test Item Value Reference Range Interpretation Comments Total Bilirubin (test code = 1975-2) 1.1 0.2-1.2 [facility] CenterAspartate Amino Transf (AST/SGOT) 2019-04-11 12:38:00* Test Item Value Reference Range Interpretation Comments Aspartate Amino Transf (AST/SGOT) (test code = Aspartate Amino Transf (AST/SGOT)) 18 5-34 [facility] CenterAlanine Aminotransferase (ALT/SGPT) 2019-04-11 12:38:00* Test Item Value Reference Range Interpretation Comments Alanine Aminotransferase (ALT/SGPT) (test code = 1742-6) 16 0-55 [facility] CenterTotal Tqfpynu2228-91-95 12:38:00* Test Item Value Reference Range Interpretation Comments Total Protein (test code = 2885-2) 7.9 6.5-8.1 [facility] CenterAlbumin2019-05-19 12:38:00* Test Item Value Reference Range Interpretation Comments Albumin (test code = 1751-7) 3.7 3.5-5.0 [facility] CenterGlobulin2019-05-19 12:38:00* Test Item Value Reference Range Interpretation Comments Globulin (test code = 32383-9) 4.2 2.3-3.5 H [facility] CenterAlbumin/Globulin Xmxdv2560-65-38 12:38:00 * Test Item Value Reference Range Interpretation Comments Albumin/Globulin Ratio (test code = 1759-0) 0.9 0.8-2.0 [facility] CenterAlkaline Rkhwljjkqsa9731-82-84 12:38:00* Test Item Value Reference Range Interpretation Comments Alkaline Phosphatase (test code = 6768-6) 77 40-150 [facility] CenterWhite Blood Laeeg2747-61-13 12:21:00* Test Item Value Reference Range Interpretation Comments White Blood Count (test code = 6690-2) 6.63 4.8-10.8 [facility] CenterRed Blood Rpfkw3167-88-68 12:21:00* Test Item Value Reference Range Interpretation Comments Red Blood Count (test code = 789-8) 5.06 3.6-5.1 [facility] CenterHemoglobin2019-05-19 12:21:00* Test Item Value Reference Range Interpretation Comments Hemoglobin (test code = 37054-8) 14.2 12.0-16.0 [facility] CenterHematocrit2019-05-19 12:21:00* Test Item Value Reference Range Interpretation Comments Hematocrit (test code = 4544-3) 41.2 34.2-44.1 [facility] CenterMean Corpuscular Jviwqw2392-03-25 12:21:00* Test Item Value Reference Range Interpretation Comments Mean Corpuscular Volume (test code = 787-2) 81.4 81-99 [facility] CenterMean Corpuscular Fclisvounv5872-94-40 12:21:00* Test Item Value Reference Range Interpretation Comments Mean Corpuscular Hemoglobin (test code = 785-6) 28.1 28-32 [facility] CenterMean Corpuscular Hemoglobin Concent 2019-04-11 12:21:00* Test Item Value Reference Range Interpretation Comments Mean Corpuscular Hemoglobin Concent (test code = 786-4) 34.5 31-35 [facility] CenterRed Cell Distribution Pchud9682-77-40 12:21:00* Test Item Value Reference Range Interpretation Comments Red Cell Distribution Width (test code = 93410-0) 12.7 11.7 -14.4 [facility] CenterPlatelet Ftpha6688-23-85 12:21:00* Test Item Value Reference Range Interpretation Comments Platelet Count (test code = 777-3) 379 140-360 H [facility] CenterNeutrophils (%) (Auto)2019-04-11 12:21:00 * Test Item Value Reference Range Interpretation Comments Neutrophils (%) (Auto) (test code = 18847-2) 53.0 38.7-80.0 [facility] CenterLymphocytes (%) (Auto)2019-04-11 12:21:00 * Test Item Value Reference Range Interpretation Comments Lymphocytes (%) (Auto) (test code = 736-9) 35.0 18.0-39.1 [facility] CenterMonocytes (%) (Auto)2019-04-11 12:21:00* Test Item Value Reference Range Interpretation Comments Monocytes (%) (Auto) (test code = 5905-5) 8.0 4.4-11.3 [facility] CenterEosinophils (%) (Auto)2019-04-11 12:21:00 * Test Item Value Reference Range Interpretation Comments Eosinophils (%) (Auto) (test code = 713-8) 3.2 0.0-6.0 [facility] CenterBasophils (%) (Auto)2019-04-11 12:21:00* Test Item Value Reference Range Interpretation Comments Basophils (%) (Auto) (test code = 706-2) 0.6 0.0-1.0 [facility] CenterIM GRANULOCYTES %2019-04-11 12:21:00* Test Item Value Reference Range Interpretation Comments IM GRANULOCYTES % (test code = IM GRANULOCYTES %) 0.2 0.0- 1.0 [facility] CenterNeutrophils # (Auto)2019-04-11 12:21:00* Test Item Value Reference Range Interpretation Comments Neutrophils # (Auto) (test code = 751-8) 3.5 2.1-6.9 [facility] CenterLymphocytes # (Auto)2019-04-11 12:21:00* Test Item Value Reference Range Interpretation Comments Lymphocytes # (Auto) (test code = 49633-1) 2.3 1.0-3.2 [facility] CenterMonocytes # (Auto)2019-04-11 12:21:00* Test Item Value Reference Range Interpretation Comments Monocytes # (Auto) (test code = 742-7) 0.5 0.2-0.8 [facility] CenterEosinophils # (Auto)2019-04-11 12:21:00* Test Item Value Reference Range Interpretation Comments Eosinophils # (Auto) (test code = 711-2) 0.2 0.0-0.4 [facility] CenterBasophils # (Auto)2019-04-11 12:21:00* Test Item Value Reference Range Interpretation Comments Basophils # (Auto) (test code = 704-7) 0.0 0.0-0.1 [facility] CenterAbsolute Immature Granulocyte (auto 2019-04-11 12:21:00* Test Item Value Reference Range Interpretation Comments Absolute Immature Granulocyte (auto (nafisa t code = Absolute Immature Granulocyte (auto) 0.01 0-0.1 [facility]
== END 2020-07-21 18:25 | disposition short-term general hospital (02) ==
LOC: ER 17:31
DX: F41.0 Panic disorder [episodic paroxysmal anxiety] (principal)